=== PATIENT | female | born 1995 | race Caucasian/White ===

== ENCOUNTER 2016-11-13 09:28 | Emergency (ER) | payer OTHER, SELFPAY ==
[~2016-11-13 09:28] MED LIST: IBUP-1114 PO; PERCOCET PO; PRENTAB13 PO
[2016-11-13] MEDS ORDERED: KETOROLAC 30 MG/ML VIAL (J1885) As Ordered ONE (10:05)
[2016-11-13] MEDS ORDERED: METOCLOPRAMIDE INJ 10MG/2ML VIAL (J2765) As Ordered ONE (10:05)
--- NOTE | 2016-11-13 11:23 | EDDOCDS ---
Physician Documentation [facility] Name: Rut Miranda Age: 21 yrs Sex: Female : 1995 Arrival Date: 11/13/2016 Time: 09:28 Bed I4 / M4 Private MD: Judith Palumbo A Disposition: 11/13/16 11:17 Discharged to Home/Self Care. Impression: Migraine without aura. - Condition is Stable. - Discharge Instructions: Migraine Headache. - Prescriptions for ZOFRAN ODT 4 mg Oral - dissolve 1 tablet by ORAL route every 8 hours As needed do not chew, do not swallow whole; 10 tablet. ketorolac 10 mg Oral Tablet - take 1 tablet by ORAL route every 6 hours As needed MDD- 40mg. Up to 5 days total use.; 20 tablet. - Medication Reconciliation, Local Pharmacy Hours form. - Follow up: Marlee Dc; When: Call to arrange an appointment; Reason: Recheck today's complaints, To establish care. Follow up: Judith Palumbo; When: As needed; Reason: Recheck today's complaints, Continuance of care. Follow up: Emergency Department; When: As needed; Reason: Worsening of conditions. - Problem is an acute exacerbation. - Symptoms have improved. Historical: - Allergies: no known allergies; - Home Meds: 1. Goody's Migraine Relief oral as needed - PMHx: Migraine Headaches; - PSHx: Cesearean Section; - Social history: Smoking status: Patient uses tobacco products, current every day smoker. No barriers to communication noted, The patient speaks fluent Portuguese, Speaks appropriately for age. - Family history: Not pertinent. - : The pt / caregiver states he / she is not on anticoagulants. Home medication list is obtained from the patient. - Exposure Risk Screening:: None identified. 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 4 in. (162.56 cm) (R); Pain 9/10; 10:34 Pain 4/10; mcp 11:18 BP 116 / 68; Pulse 79; Resp 18; Temp 96.3(T); Pulse Ox 100% on R/A; Pain 0/10; mcp 09:30 Body Mass Index 27.46 (72.57 kg, 162.56 cm) ct3 MDM: 09:58 IV Saline Lock ordered. ar2 09:58 NS 0.9% 1000 ml IV at bolus once ordered. ar2 09:58 ketorolac 30 mg IVP once ordered. ar2 09:58 Metoclopramide 10 mg IV at 40 mg/hr once over 15 mins ordered. ar2 10:15 Financial registration complete. lg Administered Medications: 10:11 Drug: ketorolac 30 mg [ketorolac 30 mg/mL (1 mL) injection solution (1 mL)] Route: IVP; mcp Site: right antecubital; 10:34 Follow up: Pain 4/10 Adult; Response: Pain is decreased mcp 10:11 Drug: Metoclopramide 10 mg [metoclopramide 5 mg/mL injection solution] Route: IV; Rate: mcp 40 mg/hr; Infused Over: 15 mins; Site: right antecubital; 10:34 Follow up: IV Status: Completed infusion; IV Intake: 9ml mcp 10:12 Drug: NS 0.9% 1000 ml [sodium chloride 0.9 % intravenous solution] Route: IV; Rate: mcp bolus; Site: right antecubital; Signatures: Fernanda Wheatley RN RN [facility] Mlelissa Patel RN RN mcp Ganter, LoriLee, Reg Reg lg Robertshaw, Aaron, PA-C PA-C ar2 MTDMichelle
--- NOTE | 2016-11-13 11:23 | EDDOCDS ---
Nurse's Notes [facility] Name: Rut Miranda Age: 21 yrs Sex: Female : 1995 Arrival Date: 11/13/2016 Time: 09:28 Bed I4 / M4 Private MD: Judith Palumbo A Diagnosis: Migraine without aura Presentation: 11/13 09:32 Presenting complaint: Patient states: i have a horrible migraine. hx of migraines. pain srm behind right eye and feels like its swollen. took 3 goodie powders this am since 0600. no vision changes. This patient has no additional risk factors. Adult Sepsis Screening: The patient does not have new or worsening altered mentation. Patient's respiratory rate is less than 22. Systolic blood pressure is greater than 100. Patient has a qSOFA score of 0- Negative Sepsis Screen. Suicide/Homicide risk assessment- the patient denies having any suicidal and/or homicidal ideations and does not present with any other emotional, behavioral or mental health complaints. Status: Patient is not a rn support services or dependent. Transition of care: patient was not received from another setting of care. 09:32 Acuity: ALEXI Level 4 srm 09:32 Method Of Arrival: Walkin/Carried/Asstd srm Triage Assessment: 09:33 Headache History: This headache is like all previous headaches. General: Appears in no srm apparent distress, Behavior is appropriate for age, cooperative. Pain: Pain currently is 9 out of 10 on a pain scale. Pain began 0600 Also complains of photophobia. HIV screening NA for this visit Offered previously. Neurological: Level of Consciousness is awake, alert, Oriented to person, place, time, Adjunct Writing Instructor are equal bilaterally Moves all extremities. Full function Gait is steady, Speech is normal, Facial symmetry appears normal. 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 Goody's Migraine Relief oral as needed - PMHx: Migraine Headaches; - PSHx: Cesearean Section; - Social history: Smoking status: Patient uses tobacco products, current every day smoker. No barriers to communication noted, The patient speaks fluent Korean, Speaks appropriately for age. - Family history: Not pertinent. - : The pt / caregiver states he / she is not on anticoagulants. Home medication list is obtained from the patient. - Exposure Risk Screening:: None identified. Screenin:12 Screening information is obtained from the patient. Fall risk: No risks identified. mcp Assistance ADL's: requires no assistance with activities of daily living. Abuse/DV Screen: The patient / caregiver reports he/she is: not in a situation that causes fear, pain or injury. Nutritional screening: No deficits noted. Advance Directives: Currently, there is no health care proxy. There is no active DNR order. There is no Power of Radiology Specialist. home support is adequate. Assessment: 10:12 General: Appears uncomfortable, Behavior is cooperative. Pain: Location: head Pain mcp currently is 8 out of 10 on a pain scale. Neurological: Level of Consciousness is awake, alert, Oriented to person, place, time, Moves all extremities. Speech is normal, Reports headache. Respiratory: Airway is patent Respiratory effort is even, unlabored. Derm: Skin is pink, warm & dry. 10:35 General: Stated some relief from headache--4/10 now. IV patent and infusing well--site mcp without any signs of infiltration. Resting on stretcher. 11:18 General: Appears in no apparent distress, comfortable, Behavior is cooperative. Pain: mcp Denies pain. Neurological: No deficits noted. Respiratory: Airway is patent Respiratory effort is even, unlabored. Derm: Skin is pink, warm & dry. Vital Signs: 09:30 BP 101 / 57; Pulse 85; Resp 18; Temp 98.3(O); Pulse Ox 100% on R/A; Weight 72.57 kg ct3 (R); Height 5 ft. 4 in. (162.56 cm) (R); Pain 9/10; 10:34 Pain 4/10; mcp 11:18 BP 116 / 68; Pulse 79; Resp 18; Temp 96.3(T); Pulse Ox 100% on R/A; Pain 0/10; mcp 09:30 Body Mass Index 27.46 (72.57 kg, 162.56 cm) ct3 Vitals: 09:30 Log In Time: November 13, 2016 at 09:27. ct3 ED Course: 09:30 Patient visited by Annie Lincoln PCA. ct3 09:30 Judith Palumbo is Private Physician. ct3 09:30 Patient moved to Waiting ct3 09:31 Patient moved to Pre RCE ct3 09:33 Triage Initiated srm 09:34 Patient moved to Triage 1 srm 09:49 [facility] ar2 09:49 Hossein Cheng MD is Attending Physician. ar2 09:49 Patient visited by Faizan Bowser PA-C. ar2 09:57 Patient moved to I4 / M4 srm 10:13 Patient visited by Mellissa Patel RN. mcp 10:13 The patient / caregiver is instructed regarding the plan of care and ED course. Patient mcp has correct armband on for positive identification. Placed in gown. Bed in low position. Call light in reach. 10:13 Inserted saline lock: 20 gauge in right antecubital area The patient tolerated the mcp procedure well. 11:05 Patient has correct armband on for positive identification. Bed in low position. Call jam1 light in reach. Side rails up X 1. Door closed. 11:16 Marlee Dc is Referral Physician. ar2 11:17 Judith Palumbo is Referral Physician. ar2 11:18 No procedures done that require assistance. mcp 11:21 Discontinued lock intact, bleeding controlled, pressure dressing applied, No mcp redness/swelling at site. Administered Medications: 10:11 Drug: ketorolac 30 mg [ketorolac 30 mg/mL (1 mL) injection solution (1 mL)] Route: IVP; mcp Site: right antecubital; 10:34 Follow up: Pain 4/10 Adult; Response: Pain is decreased mcp 10:11 Drug: Metoclopramide 10 mg [metoclopramide 5 mg/mL injection solution] Route: IV; Rate: mcp 40 mg/hr; Infused Over: 15 mins; Site: right antecubital; 10:34 Follow up: IV Status: Completed infusion; IV Intake: 9ml mcp 10:12 Drug: NS 0.9% 1000 ml [sodium chloride 0.9 % intravenous solution] Route: IV; Rate: mcp bolus; Site: right antecubital; Intake: 10:34 IV: 9.00ml; Total: 9.00ml. mcp Order Results: There are currently no results for this order. Outcome: 11:17 Discharge ordered by Provider. ar2 11:21 Discharge Assessment: patient administered narcotics - no. The following High Risk mcp Discharge criteria are identified: None. Discharged to home ambulatory. Condition: stable. Discharge instructions given to patient, Instructed on discharge instructions, follow up and referral plans. medication usage, Demonstrated understanding of instructions, medications, Pt was receptive of discharge instructions/ teaching. Prescriptions given X 2. No special radiology studies were completed. Property sent home with patient. 11:22 Patient left the ED. [facility] Signatures: Fernanda Wheatley RN RN srm Peters, Mary, RN RN mcp Murphy, Jane, DRUM PLATER DRUM PLATER jam1 Faizan Bowser PA-C PA-C ar2 Annie Lincoln, DRUM PLATER DRUM PLATER ct3 MTDD
--- NOTE | 2016-11-15 12:23 | EDDOCDS ---
Physician Documentation [facility] Name: Rut Miranda Age: 21 yrs Sex: Female : 1995 Arrival Date: 11/13/2016 Time: 09:28 Bed I4 / M4 Private MD: Judith Palumbo A Disposition: 11/13/16 11:17 Discharged to Home/Self Care. Impression: Migraine without aura. - Condition is Stable. - Discharge Instructions: Migraine Headache. - Prescriptions for ZOFRAN ODT 4 mg Oral - dissolve 1 tablet by ORAL route every 8 hours As needed do not chew, do not swallow whole; 10 tablet. ketorolac 10 mg Oral Tablet - take 1 tablet by ORAL route every 6 hours As needed MDD- 40mg. Up to 5 days total use.; 20 tablet. - Medication Reconciliation, Local Pharmacy Hours form. - Follow up: Marlee Dc; When: Call to arrange an appointment; Reason: Recheck today's complaints, To establish care. Follow up: Judith Palumbo; When: As needed; Reason: Recheck today's complaints, Continuance of care. Follow up: Emergency Department; When: As needed; Reason: Worsening of conditions. - Problem is an acute exacerbation. - Symptoms have improved. Historical: - Allergies: no known allergies; - Home Meds: 1. Goody's Migraine Relief oral as needed - PMHx: Migraine Headaches; - PSHx: Cesearean Section; - Social history: Smoking status: Patient uses tobacco products, current every day smoker. No barriers to communication noted, The patient speaks fluent German, Speaks appropriately for age. - Family history: Not pertinent. - : The pt / caregiver states he / she is not on anticoagulants. Home medication list is obtained from the patient. - Exposure Risk Screening:: None identified. ECD: 11/13 09:33 LMP 10/19/2016 srm Vital Signs: 09:30 BP 101 / 57; Pulse 85; Resp 18; Temp 98.3(O); Pulse Ox 100% on R/A; Weight 72.57 kg / ct3 159.99 lbs (R); Height 5 ft. 4 in. (162.56 cm) (R); Pain 9/10; 10:34 Pain 4/10; mcp 11:18 BP 116 / 68; Pulse 79; Resp 18; Temp 96.3(T); Pulse Ox 100% on R/A; Pain 0/10; mcp 09:30 Body Mass Index 27.46 (72.57 kg, 162.56 cm) ct3 MDM: 09:58 IV Saline Lock ordered. ar2 09:58 NS 0.9% 1000 ml IV at bolus once ordered. ar2 09:58 ketorolac 30 mg IVP once ordered. ar2 09:58 Metoclopramide 10 mg IV at 40 mg/hr once over 15 mins ordered. ar2 10:15 Financial registration complete. lg 12:28 [facility] Payment Agreement was scanned into [employer] and attached to record. lg 15:32 T-Sheet-- Draft Copy was scanned into [employer] and attached to record. gb Administered Medications: 10:11 Drug: ketorolac 30 mg [ketorolac 30 mg/mL (1 mL) injection solution (1 mL)] Route: IVP; mcp Site: right antecubital; 10:34 Follow up: Pain 4/10 Adult; Response: Pain is decreased mcp 10:11 Drug: Metoclopramide 10 mg [metoclopramide 5 mg/mL injection solution] Route: IV; Rate: mcp 40 mg/hr; Infused Over: 15 mins; Site: right antecubital; 10:34 Follow up: IV Status: Completed infusion; IV Intake: 9ml mcp 10:12 Drug: NS 0.9% 1000 ml [sodium chloride 0.9 % intravenous solution] Route: IV; Rate: mcp bolus; Site: right antecubital; Signatures: Fernanda Wheatley RN RN [facility] Mellissa Patel RN RN [facility] Gabriela Poole, Reg Reg gb [place] Truong, Reg Reg lg Faizan Bowser PA-C PA-C ar2 The chart was reviewed and I authenticate all verbal orders and agree with the evaluation and treatment provided.Attachments: 12:28 [facility] Payment Agreement lg 15:32 T-Sheet-- Draft Copy gb Chart Complete MTDD
--- NOTE | 2016-11-15 12:23 | EDDOCDS ---
Physician Documentation [facility] Name: Rut Miranda Age: 21 yrs Sex: Female : 1995 Arrival Date: 11/13/2016 Time: 09:28 Bed I4 / M4 Private MD: Judith Palumbo A Disposition: 11/13/16 11:17 Discharged to Home/Self Care. Impression: Migraine without aura. - Condition is Stable. - Discharge Instructions: Migraine Headache. - Prescriptions for ZOFRAN ODT 4 mg Oral - dissolve 1 tablet by ORAL route every 8 hours As needed do not chew, do not swallow whole; 10 tablet. ketorolac 10 mg Oral Tablet - take 1 tablet by ORAL route every 6 hours As needed MDD- 40mg. Up to 5 days total use.; 20 tablet. - Medication Reconciliation, Local Pharmacy Hours form. - Follow up: Marlee Dc; When: Call to arrange an appointment; Reason: Recheck today's complaints, To establish care. Follow up: Judith Palumbo; When: As needed; Reason: Recheck today's complaints, Continuance of care. Follow up: Emergency Department; When: As needed; Reason: Worsening of conditions. - Problem is an acute exacerbation. - Symptoms have improved. Historical: - Allergies: no known allergies; - Home Meds: 1. Goody's Migraine Relief oral as needed - PMHx: Migraine Headaches; - PSHx: Cesearean Section; - Social history: Smoking status: Patient uses tobacco products, current every day smoker. No barriers to communication noted, The patient speaks fluent Spanish, Speaks appropriately for age. - Family history: Not pertinent. - : The pt / caregiver states he / she is not on anticoagulants. Home medication list is obtained from the patient. - Exposure Risk Screening:: None identified. 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 4 in. (162.56 cm) (R); Pain 9/10; 10:34 Pain 4/10; mcp 11:18 BP 116 / 68; Pulse 79; Resp 18; Temp 96.3(T); Pulse Ox 100% on R/A; Pain 0/10; mcp 09:30 Body Mass Index 27.46 (72.57 kg, 162.56 cm) ct3 MDM: 09:58 IV Saline Lock ordered. ar2 09:58 NS 0.9% 1000 ml IV at bolus once ordered. ar2 09:58 ketorolac 30 mg IVP once ordered. ar2 09:58 Metoclopramide 10 mg IV at 40 mg/hr once over 15 mins ordered. ar2 10:15 Financial registration complete. lg 12:28 [facility] Payment Agreement was scanned into [employer] and attached to record. lg 15:32 T-Sheet-- Draft Copy was scanned into [employer] and attached to record. gb Administered Medications: 10:11 Drug: ketorolac 30 mg [ketorolac 30 mg/mL (1 mL) injection solution (1 mL)] Route: IVP; mcp Site: right antecubital; 10:34 Follow up: Pain 4/10 Adult; Response: Pain is decreased mcp 10:11 Drug: Metoclopramide 10 mg [metoclopramide 5 mg/mL injection solution] Route: IV; Rate: mcp 40 mg/hr; Infused Over: 15 mins; Site: right antecubital; 10:34 Follow up: IV Status: Completed infusion; IV Intake: 9ml mcp 10:12 Drug: NS 0.9% 1000 ml [sodium chloride 0.9 % intravenous solution] Route: IV; Rate: mcp bolus; Site: right antecubital; Signatures: Fernanda Wheatley RN RN [facility] Mellissa Patel RN RN [facility] Gabriela Poole, Reg Reg gb [place] Truong, Reg Reg lg Faizan Bowser PA-C PA-C ar2 The chart was reviewed and I authenticate all verbal orders and agree with the evaluation and treatment provided.Attachments: 12:28 [facility] Payment Agreement lg 15:32 T-Sheet-- Draft Copy gb Chart Complete MTDD
--- NOTE | 2016-11-15 12:23 | EDDOCDS ---
Nurse's Notes [facility] Name: Rut Miranda Age: 21 yrs Sex: Female : 1995 Arrival Date: 11/13/2016 Time: 09:28 Bed I4 / M4 Private MD: Judith Palumbo A Diagnosis: Migraine without aura Presentation: 11/13 09:32 Presenting complaint: Patient states: i have a horrible migraine. hx of migraines. pain srm behind right eye and feels like its swollen. took 3 goodie powders this am since 0600. no vision changes. This patient has no additional risk factors. Adult Sepsis Screening: The patient does not have new or worsening altered mentation. Patient's respiratory rate is less than 22. Systolic blood pressure is greater than 100. Patient has a qSOFA score of 0- Negative Sepsis Screen. Suicide/Homicide risk assessment- the patient denies having any suicidal and/or homicidal ideations and does not present with any other emotional, behavioral or mental health complaints. Status: Patient is not a home service director or dependent. Transition of care: patient was not received from another setting of care. 09:32 Acuity: ALEXI Level 4 srm 09:32 Method Of Arrival: Walkin/Carried/Asstd srm Triage Assessment: 09:33 Headache History: This headache is like all previous headaches. General: Appears in no srm apparent distress, Behavior is appropriate for age, cooperative. Pain: Pain currently is 9 out of 10 on a pain scale. Pain began 0600 Also complains of photophobia. HIV screening NA for this visit Offered previously. Neurological: Level of Consciousness is awake, alert, Oriented to person, place, time, Pediatric Nephrologist are equal bilaterally Moves all extremities. Full function Gait is steady, Speech is normal, Facial symmetry appears normal. 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 Goody's Migraine Relief oral as needed - PMHx: Migraine Headaches; - PSHx: Cesearean Section; - Social history: Smoking status: Patient uses tobacco products, current every day smoker. No barriers to communication noted, The patient speaks fluent Polish, Speaks appropriately for age. - Family history: Not pertinent. - : The pt / caregiver states he / she is not on anticoagulants. Home medication list is obtained from the patient. - Exposure Risk Screening:: None identified. Screenin:12 Screening information is obtained from the patient. Fall risk: No risks identified. mcp Assistance ADL's: requires no assistance with activities of daily living. Abuse/DV Screen: The patient / caregiver reports he/she is: not in a situation that causes fear, pain or injury. Nutritional screening: No deficits noted. Advance Directives: Currently, there is no health care proxy. There is no active DNR order. There is no Power of Resident Services Manager. home support is adequate. Assessment: 10:12 General: Appears uncomfortable, Behavior is cooperative. Pain: Location: head Pain mcp currently is 8 out of 10 on a pain scale. Neurological: Level of Consciousness is awake, alert, Oriented to person, place, time, Moves all extremities. Speech is normal, Reports headache. Respiratory: Airway is patent Respiratory effort is even, unlabored. Derm: Skin is pink, warm & dry. 10:35 General: Stated some relief from headache--4/10 now. IV patent and infusing well--site mcp without any signs of infiltration. Resting on stretcher. 11:18 General: Appears in no apparent distress, comfortable, Behavior is cooperative. Pain: mcp Denies pain. Neurological: No deficits noted. Respiratory: Airway is patent Respiratory effort is even, unlabored. Derm: Skin is pink, warm & dry. Vital Signs: 09:30 BP 101 / 57; Pulse 85; Resp 18; Temp 98.3(O); Pulse Ox 100% on R/A; Weight 72.57 kg ct3 (R); Height 5 ft. 4 in. (162.56 cm) (R); Pain 9/10; 10:34 Pain 4/10; mcp 11:18 BP 116 / 68; Pulse 79; Resp 18; Temp 96.3(T); Pulse Ox 100% on R/A; Pain 0/10; mcp 09:30 Body Mass Index 27.46 (72.57 kg, 162.56 cm) ct3 Vitals: 09:30 Log In Time: November 13, 2016 at 09:27. ct3 ED Course: 09:30 Patient visited by Annie Lincoln PCA. ct3 09:30 Judith Palumbo is Private Physician. ct3 09:30 Patient moved to Waiting ct3 09:31 Patient moved to Pre RCE ct3 09:33 Triage Initiated srm 09:34 Patient moved to Triage 1 srm 09:49 [facility]an Bowser [facility] ar2 09:49 Hossein Cheng MD is Attending Physician. ar2 09:49 Patient visited by Faizan Bowser PA-C. ar2 09:57 Patient moved to I4 / M4 srm 10:13 Patient visited by Mellissa Patel RN. mcp 10:13 The patient / caregiver is instructed regarding the plan of care and ED course. Patient mcp has correct armband on for positive identification. Placed in gown. Bed in low position. Call light in reach. 10:13 Inserted saline lock: 20 gauge in right antecubital area The patient tolerated the mcp procedure well. 11:05 Patient has correct armband on for positive identification. Bed in low position. Call jam1 light in reach. Side rails up X 1. Door closed. 11:16 Marlee Dc is Referral Physician. ar2 11:17 Judith Palumbo is Referral Physician. ar2 11:18 No procedures done that require assistance. mcp 11:21 Discontinued lock intact, bleeding controlled, pressure dressing applied, No mcp redness/swelling at site. 12:28 [facility] Payment Agreement was scanned into [employer] and attached to record. 15:32 T-Sheet-- Draft Copy was scanned into [employer] and attached to record. gb Administered Medications: 10:11 Drug: ketorolac 30 mg [ketorolac 30 mg/mL (1 mL) injection solution (1 mL)] Route: IVP; mcp Site: right antecubital; 10:34 Follow up: Pain 4/10 Adult; Response: Pain is decreased mcp 10:11 Drug: Metoclopramide 10 mg [metoclopramide 5 mg/mL injection solution] Route: IV; Rate: mcp 40 mg/hr; Infused Over: 15 mins; Site: right antecubital; 10:34 Follow up: IV Status: Completed infusion; IV Intake: 9ml mcp 10:12 Drug: NS 0.9% 1000 ml [sodium chloride 0.9 % intravenous solution] Route: IV; Rate: mcp bolus; Site: right antecubital; Intake: 10:34 IV: 9.00ml; Total: 9.00ml. mcp Order Results: There are currently no results for this order. Outcome: 11:17 Discharge ordered by Provider. ar2 11:21 Discharge Assessment: patient administered narcotics - no. The following High Risk [facility] Discharge criteria are identified: None. Discharged to home ambulatory. Condition: stable. Discharge instructions given to patient, Instructed on discharge instructions, follow up and referral plans. medication usage, Demonstrated understanding of instructions, medications, Pt was receptive of discharge instructions/ teaching. Prescriptions given X 2. No special radiology studies were completed. Property sent home with patient. 11:22 Patient left the ED. [facility] Signatures: Fernanda Wheatley, RN RN Mellissa Long RN RN mcp Murphy, Jane, WEASAND TRIMMER WEASAND TRIMMER jam1 Gabriela Poole, Reg Reg gb [place] Truong, Reg Reg lg Faizan Bowser PA-C PA-C ar2 Annie Lincoln, WEASAND TRIMMER WEASAND TRIMMER ct3 Chart Complete MTDD
== END 2016-11-13 11:22 | disposition home or self-care (01) ==
LOC: M ED 09:28
DX: G43.909 Migraine, unspecified, not intractable, without status migrainosus (principal); F17.200 Nicotine dependence, unspecified, uncomplicated
CPT/HCPCS: 96365; 96375; 99283; J1885; J2765

== ENCOUNTER 2017-05-14 15:33 | Emergency (ER) | payer MEDICAID, SELFPAY ==
[~2017-05-14] VITALS: Ht 162.6 cm; Wt 87.4 kg
[~2017-05-14 15:33] MED LIST changes: +FLAG500T PO; -PRENTAB13 PO; +PRENTAB20 PO
[2017-05-14] MEDS ORDERED: ZOFR4TAB3 PO (16:49)
[2017-05-14] MEDS ORDERED: FIOR1CAP PO (16:49)
[2017-05-14 17:00] VITALS: BP 121/66
== END 2017-05-14 17:04 | disposition home or self-care (01) ==
LOC: M ED 15:33
DX: O99.352 Diseases of the nervous system complicating pregnancy, second trimester (principal); G43.909 Migraine, unspecified, not intractable, without status migrainosus; Z3A.18 18 weeks gestation of pregnancy; O99.332 Smoking (tobacco) complicating pregnancy, second trimester; F17.210 Nicotine dependence, cigarettes, uncomplicated

== ENCOUNTER → 2017-08-08 | Outpatient (CLI) | payer OTHER ==
[~2017-08-08] MED LIST changes: +FIOR1CAP PO; +ZOFR4TAB3 PO
--- NOTE | 2017-08-08 11:37 | REP ---
Obstetric ultrasound for anatomy: There is a single intrauterine gestation in a breech presentation. There is movement and cardiac activity. heart rate is 140 beats per minute. There is an anterior placenta with no previa or abruptio with grade 1 maturity. The amniotic fluid volume subjectively is normal. The cervix measures 5.2 cm length. By the ultrasound today gestational age is 27 weeks 3 days with an BERNARD of 11/04/2017. By the first ultrasound gestational age 20 weeks 4 days with an BERNARD of 10/27/2017. By LMP 28 weeks 2 days with an BERNARD of 10/29/2017. weight is 1005 grams (2 pounds, 3 ounces). This is the 12th percentile for 28 weeks 2 days. The following anatomic structures are identified and are unremarkable: Intracranial lateral ventricles, balloon choroid plexus, cerebellum, cisterna magna, upper lip, facial profile, face, lungs, four-chamber heart, cardiac right and left ventricular outflow tracts, diaphragm, stomach, cord insertion, three-vessel cord, kidneys, bladder, spine and upper lower extremities. No anomalies are identified. Signed by Santos Thibodeaux MD 08/08/2017 11:30 A
== END ==
LOC: M RAD 09:25
PROVIDERS: ATTEND Advanced Practice Midwife
DX: Z36.89 Encounter for other specified antenatal screening (principal); Z3A.27 27 weeks gestation of pregnancy

== ENCOUNTER → 2017-08-15 | Outpatient (CLI) | payer OTHER ==
[2017-08-15 13:51] LABS: BASO % 0.2 % (0.0-1.0); EOS # 0.1 10^3/uL (0.0-0.50); EOS % 0.5 % (0.0-3.0); IMMATURE GRANULOCYTE % 0.8 % (0-0); LYMPH # 2.6 10^3/uL (1.5-6.5); LYMPH % 21.1 % (24.0-44.0); MEAN CORPUSCULAR HEMOGLOBIN 33.5 pg (27.0-33.0); MEAN CORPUSCULAR HGB CONC 34.3 g/dl (32.0-36.5); MEAN CORPUSCULAR VOLUME 97.7 fl (80.0-96.0); MONO # 0.6 10^3/uL (0.0-0.8); MONO % 4.9 % (0.0-5.0); NEUTROPHILS # 8.9 10^3/uL (1.8-7.7); NEUTROPHILS % 72.5 % (36.0-66.0); PLATELET COUNT, AUTOMATED 198 10^3/uL (150-450); RED CELL DISTRIBUTION WIDTH 12.8 % (11.5-14.5); WHITE BLOOD COUNT 12.2 10^3/uL (4.0-10.0)
[2017-08-16 11:11] LABS: HBsAg Prenatal NEGATIVE (NEGATIVE)
== END ==
LOC: M LAB 11:36
PROVIDERS: ATTEND Advanced Practice Midwife
DX: Z34.82 Encounter for supervision of other normal pregnancy, second trimester (principal)

== ENCOUNTER → 2017-10-01 | Outpatient (REF) | payer OTHER | LOC: M LAB REF 17:06 | DX: Z34.83 Encounter for supervision of other normal pregnancy, third trimester (principal); Z3A.00 Weeks of gestation of pregnancy not specified ==

== ENCOUNTER → 2017-10-14 | Outpatient (CLI) | payer OTHER | LOC: M RAD 13:53 | DX: O26.843 Uterine size-date discrepancy, third trimester (principal); Z3A.37 37 weeks gestation of pregnancy | CPT/HCPCS: 76816 ==

== ENCOUNTER 2017-10-23 07:27 | Inpatient (IN) | payer OTHER ==
[2017-10-23 08:56] LABS: HEMATOCRIT 30.6 % (36.0-47.0); HEMOGLOBIN 10.9 g/dl (12.0-16.0); MEAN CORPUSCULAR HEMOGLOBIN 33.4 pg (27.0-33.0); MEAN CORPUSCULAR HGB CONC 35.6 g/dl (32.0-36.5); MEAN CORPUSCULAR VOLUME 93.9 fl (80.0-96.0); PLATELET COUNT, AUTOMATED 158 10^3/uL (150-450); RED BLOOD COUNT 3.26 10^6/uL (4.00-5.40); WHITE BLOOD COUNT 11.4 10^3/uL (4.0-10.0)
[2017-10-23] MEDS: PRENATAL VITAMINS CHEWABLE TABLET PO (09:00)
[2017-10-23] MEDS ORDERED: MORPHINE PRES-FREE INJ 10 MG/10 ML VIAL (J2274) As Ordered (09:06)
[2017-10-23] MEDS: LR 1,000 ML IV ×5 (09:14→22:50)
[2017-10-23] MEDS ORDERED: LR 1,000 ML IV (09:15)
[2017-10-23] MEDS: BICITRA 30ML SOLN UDC PO (10:11)
[2017-10-23] MEDS ORDERED: OXYTOCIN INJ 10 UNITS/ML VIAL (J2590) As Ordered ×2 (10:14→10:15)
[2017-10-23] MEDS ORDERED: NALOXONE INJ 0.4 MG/1 ML VIAL (J2310) IV ×2 (10:21)
[2017-10-23] MEDS ORDERED: ONDANSETRON 4MG/2ML VIAL (J2405) IV ×3 (10:21→12:00)
[2017-10-23] MEDS ORDERED: NALBUPHINE HCL 10 MG/ML AMP (J2300) IV ×2 (10:21→12:00)
[2017-10-23] MEDS ORDERED: METOCLOPRAMIDE INJ 10MG/2ML VIAL (J2765) IV (10:21)
[2017-10-23] MEDS ORDERED: ePHEDrine INJ 50 MG/ML VIAL As Ordered (10:23)
[2017-10-23] MEDS ORDERED: PHENYLephrine HCL 500 MCG/5 ML (100MCG/ML) SYRINGE (J2370) As Ordered (10:28)
[2017-10-23] MEDS ORDERED: ONDANSETRON 4MG/2ML VIAL (J2405) As Ordered (10:37)
[2017-10-23] MEDS: OXYTOCIN DRIP 30 UNITS in APPROPRIATE DILUENT 1 EA IV (11:45)
[2017-10-23] MEDS ORDERED: MOM 30ML SUSPENSION UDC PO (11:45)
[2017-10-23] MEDS ORDERED: KETOROLAC 30 MG/ML VIAL (J1885) IV (12:00)
[2017-10-23] MEDS ORDERED: MEPERIDINE INJ 25 MG/ML VIAL (J2175) IV (12:00)
[2017-10-23] MEDS ORDERED: fentaNYL 100 MCG/2 ML INJECTION (J3010) IV (12:00)
[2017-10-23] MEDS: RHOGAM 300 MCG (1500 IU) INJ (J2790) IM (14:13)
[2017-10-23] MEDS: MEASLES,MUMPS,RUBELLA VACCINE INJ (MMR-II) (90707) SC (14:14)
[2017-10-23] MEDS: KETOROLAC 30 MG/ML VIAL (J1885) IV (18:42)
[2017-10-23] MEDS ORDERED: INFLUENZA QUADRIVALENT PF VACCINE 0.5ML SYRINGE (90686) IM (19:15)
[2017-10-23] MEDS: PERCOCET 5MG/325MG TAB PO (22:51)
[2017-10-24] MEDS: KETOROLAC 30 MG/ML VIAL (J1885) IV ×2 (01:14→06:41)
[2017-10-24 07:08] LABS: HEMOGLOBIN 9.2 g/dl (12.0-16.0); MEAN CORPUSCULAR HEMOGLOBIN 32.9 pg (27.0-33.0); MEAN CORPUSCULAR HGB CONC 34.1 g/dl (32.0-36.5); MEAN CORPUSCULAR VOLUME 96.4 fl (80.0-96.0); PLATELET COUNT, AUTOMATED 132 10^3/uL (150-450); RED CELL DISTRIBUTION WIDTH 12.9 % (11.5-14.5); WHITE BLOOD COUNT 10.3 10^3/uL (4.0-10.0)
[2017-10-24] MEDS ORDERED: ADACEL/BOOSTRIX VACCINE (DIPHTH/PERTUSS/ACELL/TETANUS)0.5ML SYR (90715) IM (09:00)
[2017-10-24] MEDS: PRENATAL VITAMINS CHEWABLE TABLET PO (09:36)
[2017-10-24] MEDS: PERCOCET 5MG/325MG TAB PO ×3 (09:52→19:56)
[2017-10-24] MEDS: IBUPROFEN 800 MG TAB PO ×2 (14:51→22:42)
[2017-10-24] MEDS: DOCUSATE SODIUM 100 MG CAP PO (19:55)
[2017-10-25] MEDS: DOCUSATE SODIUM 100 MG CAP PO (04:22)
[2017-10-25] MEDS: PERCOCET 5MG/325MG TAB PO ×2 (04:22→08:23)
[2017-10-25] MEDS: IBUPROFEN 800 MG TAB PO (07:37)
[2017-10-25] MEDS: PRENATAL VITAMINS CHEWABLE TABLET PO (07:37)
[2017-10-25] MEDS: ADACEL/BOOSTRIX VACCINE (DIPHTH/PERTUSS/ACELL/TETANUS)0.5ML SYR (90715) IM (08:23)
== END 2017-10-25 11:05 | disposition home or self-care (01) | DRG 540 ==
LOC: M LDI 07:27 → M OBS 14:08
PROVIDERS: Obstetrics & Gynecology
PROC: 10D00Z1 Extraction of Products of Conception, Low, Open Approach (ICD-10-PCS; principal; 2017-10-23 09:30)
DX: O34.211 Maternal care for low transverse scar from previous cesarean delivery (principal); F17.210 Nicotine dependence, cigarettes, uncomplicated; Z3A.39 39 weeks gestation of pregnancy; O99.334 Smoking (tobacco) complicating childbirth; Z37.0 Single live birth

== ENCOUNTER 2018-01-24 17:05 | Emergency (ER) | payer OTHER ==
[2018-01-24] MEDS: METHOCARBAMOL 750 MG TAB PO (19:02)
[2018-01-24] MEDS: PERCOCET 5MG/325MG TAB PO (19:03)
== END 2018-01-24 19:52 | disposition home or self-care (01) ==
LOC: M ED 17:05
DX: S23.3XXA Sprain of ligaments of thoracic spine, initial encounter (principal); S33.5XXA Sprain of ligaments of lumbar spine, initial encounter; W10.9XXA Fall (on) (from) unspecified stairs and steps, initial encounter; Y92.89 Other specified places as the place of occurrence of the external cause; J45.909 Unspecified asthma, uncomplicated; F33.9 Major depressive disorder, recurrent, unspecified; F41.9 Anxiety disorder, unspecified; F17.210 Nicotine dependence, cigarettes, uncomplicated
CPT/HCPCS: 72128

== ENCOUNTER → 2018-03-26 | Outpatient (CLI) | payer OTHER | LOC: M OUTALCOH 07:55 | DX: Z03.89 Encounter for observation for other suspected diseases and conditions ruled out (principal) ==

== ENCOUNTER 2018-04-08 13:40 | Outpatient (RCR) | payer OTHER | END 2018-04-29 | LOC: M OUTALCOH 13:40 | DX: Z03.89 Encounter for observation for other suspected diseases and conditions ruled out (principal); F17.200 Nicotine dependence, unspecified, uncomplicated ==

== ENCOUNTER 2018-05-20 15:25 | Emergency (ER) | payer OTHER ==
[2018-05-20] MEDS: NS 500 ML IV (17:24)
[2018-05-20] MEDS: diphenhydrAMINE INJ 50MG/ML VIAL (J1200) IV (17:28)
[2018-05-20] MEDS: KETOROLAC 30 MG/ML VIAL (J1885) IV (17:28)
[2018-05-20] MEDS: METOCLOPRAMIDE INJ 10MG/2ML VIAL (J2765) IV (17:28)
== END 2018-05-20 18:33 | disposition home or self-care (01) ==
LOC: M ED 15:25
DX: S93.402A Sprain of unspecified ligament of left ankle, initial encounter (principal); S80.02XA Contusion of left knee, initial encounter; S90.32XA Contusion of left foot, initial encounter; G43.909 Migraine, unspecified, not intractable, without status migrainosus; W10.8XXA Fall (on) (from) other stairs and steps, initial encounter; Y92.098 Other place in other non-institutional residence as the place of occurrence of the external cause; J45.909 Unspecified asthma, uncomplicated; F41.9 Anxiety disorder, unspecified; F32.9 Major depressive disorder, single episode, unspecified
CPT/HCPCS: J1200

== ENCOUNTER 2018-06-25 07:32 | Emergency (ER) | payer OTHER ==
[2018-06-25] MEDS: IBUPROFEN 600 MG TAB PO (08:43)
[2018-06-25 09:07] LABS: INFLUENZA A AMPLIFICATION NEGATIVE (NEGATIVE); INFLUENZA B AMPLIFICATION NEGATIVE (NEGATIVE)
== END 2018-06-25 10:09 | disposition home or self-care (01) ==
LOC: M ED 07:32
DX: J06.9 Acute upper respiratory infection, unspecified (principal)
CPT/HCPCS: 87502

== ENCOUNTER 2018-08-15 06:00 | Day surgery (SDC) | payer OTHER ==
[2018-08-15] MEDS ORDERED: LR 1,000 ML IV ×2 (06:30→09:15)
[2018-08-15 06:39] LABS: HEMATOCRIT 39.9 % (36.0-47.0); HEMOGLOBIN 13.7 g/dl (12.0-15.5); MEAN CORPUSCULAR HEMOGLOBIN 33.2 pg (27.0-33.0); MEAN CORPUSCULAR HGB CONC 34.3 g/dl (32.0-36.5); MEAN CORPUSCULAR VOLUME 96.6 fl (80.0-96.0); PLATELET COUNT, AUTOMATED 217 10^3/uL (150-450); RED BLOOD COUNT 4.13 10^6/uL (4.00-5.40); RED CELL DISTRIBUTION WIDTH 11.7 % (11.5-14.5); WHITE BLOOD COUNT 8.9 10^3/uL (4.0-10.0)
[2018-08-15 07:01] LABS: CONTROL LINE HCG INT CTR LINE PRESENT; HCG, SERUM QUALITATIVE NEGATIVE (NEGATIVE)
[2018-08-15] MEDS ORDERED: fentaNYL 100 MCG/2 ML INJECTION (J3010) As Ordered ×2 (07:23→09:00)
[2018-08-15] MEDS ORDERED: PROPOFOL 200 MG/20 ML VIAL As Ordered (07:23)
[2018-08-15] MEDS ORDERED: dexameTHASONE 4 MG/ML 1ML VIAL (J1100) As Ordered (07:23)
[2018-08-15] MEDS ORDERED: LIDOCAINE 2% INJ 100 MG/5 ML SDV (FOR ANES.) As Ordered (07:23)
[2018-08-15] MEDS ORDERED: ROCURONIUM BROMIDE 50 MG/5 ML VIAL As Ordered (07:23)
[2018-08-15] MEDS ORDERED: MIDAZOLAM INJ 2 MG/2 ML VIAL (J2250) As Ordered (07:24)
[2018-08-15] MEDS ORDERED: PHENYLephrine HCL 500 MCG/5 ML (100MCG/ML) SYRINGE (J2370) As Ordered (08:18)
[2018-08-15] MEDS: BUPIVACAINE HCL 0.25% 30 ML VIAL As Ordered (08:23)
[2018-08-15] MEDS ORDERED: NEOSTIGMINE 10 MG/10 ML VIAL (J2710) As Ordered ×2 (08:29→08:30)
[2018-08-15] MEDS ORDERED: KETOROLAC 60 MG/2 ML VIAL (J1885) As Ordered (08:29)
[2018-08-15] MEDS ORDERED: ONDANSETRON 4MG/2ML VIAL (J2405) As Ordered (08:29)
[2018-08-15] MEDS ORDERED: GLYCOPYRROLATE INJ 0.2 MG/ML 2 ML VIAL As Ordered (08:29)
[2018-08-15] MEDS ORDERED: SUGAMMADEX SODIUM 500 MG/5 ML VIAL (BRIDION) As Ordered (08:32)
[2018-08-15] MEDS ORDERED: MEPERIDINE INJ 25 MG/ML VIAL (J2175) As Ordered (09:00)
[2018-08-15] MEDS: fentaNYL 100 MCG/2 ML INJECTION (J3010) IV ×2 (09:02→09:09)
[2018-08-15] MEDS: MEPERIDINE INJ 25 MG/ML VIAL (J2175) IV ×2 (09:03→09:13)
[2018-08-15] MEDS ORDERED: ONDANSETRON 4MG/2ML VIAL (J2405) IV (09:15)
[2018-08-15] MEDS ORDERED: METOCLOPRAMIDE INJ 10MG/2ML VIAL (J2765) IV (09:15)
[2018-08-15] MEDS ORDERED: PERCOCET 5MG/325MG TAB PO (09:15)
[2018-08-15] MEDS: PERCOCET 5MG/325MG TAB PO ×2 (10:09→10:50)
[2018-08-15] MEDS ORDERED: KETOROLAC 30 MG/ML VIAL (J1885) IV (15:00)
== END 2018-08-15 11:14 | disposition home or self-care (01) ==
LOC: M SDC 06:00
DX: Z30.2 Encounter for sterilization (principal); G43.909 Migraine, unspecified, not intractable, without status migrainosus; J45.909 Unspecified asthma, uncomplicated; Z72.0 Tobacco use
CPT/HCPCS: 58671

== ENCOUNTER 2018-10-07 22:17 | Emergency (ER) | payer OTHER ==
[~2018-10-07] VITALS: Ht 162.6 cm; Wt 90.9 kg
[2018-10-07 22:17] VITALS: BP 121/64
[~2018-10-07 22:17] MED LIST changes: +ACET30TAB PO; +COLA100C5 PO; +IBUP1TAB7 PO; +KETO10TAB PO; +NAPR-885 PO; +PERC5TAB12 PO; +PRENTAB9 PO; +PSEU30TA21 PO; +REGL10TA6 PO; +ROBA500T PO; +TYLE325T5 PO; +ZOFR4TAB14 PO; -ZOFR4TAB3 PO
[2018-10-07] MEDS ORDERED: CLINDAMYCIN 150 MG CAP PO ONE (23:45)
[2018-10-07] MEDS ORDERED: CLEO300C2 PO (23:45)
== END 2018-10-07 23:51 | disposition home or self-care (01) ==
LOC: M ED 22:17
DX: L03.211 Cellulitis of face (principal); R51 Headache; J45.909 Unspecified asthma, uncomplicated; F41.9 Anxiety disorder, unspecified; F32.9 Major depressive disorder, single episode, unspecified; F17.210 Nicotine dependence, cigarettes, uncomplicated

== ENCOUNTER 2018-11-05 21:22 | Emergency (ER) | payer OTHER ==
[~2018-11-05] VITALS: Ht 162.6 cm; Wt 81.8 kg
[~2018-11-05 21:22] MED LIST changes: +CLEO300C2 PO
[2018-11-05] MEDS ORDERED: KETOROLAC TROMETHAMINE 10 MG TAB PO ONE (22:00)
[2018-11-05] MEDS ORDERED: KETO10TAB PO (22:37)
[2018-11-05 23:01] VITALS: BP 110/66
--- NOTE | 2018-11-06 02:42 | REP ---
Clinical: Trauma/fall with left hip pain. Technique: Frontal view of the pelvis with neutral and frog lateral views of the left hip. Findings: Osseous structures and joint spaces are intact and normal. Hip joints appear symmetric on frontal pelvic radiograph. No acute fracture dislocation. No evidence for healed injury. No significant degenerative or congenital abnormalities are appreciated. Surrounding soft tissues are unremarkable. Impression: Normal pelvis and left hip series. Electronically Signed by Mayito Ontiveros MD 11/06/2018 02:33 A
== END 2018-11-05 23:00 | disposition home or self-care (01) ==
LOC: M ED 21:22
DX: S73.102A Unspecified sprain of left hip, initial encounter (principal); W19.XXXA Unspecified fall, initial encounter; Y92.511 Restaurant or cafe as the place of occurrence of the external cause

== ENCOUNTER 2018-11-08 15:23 | Emergency (ER) | payer OTHER ==
[~2018-11-08] VITALS: Ht 162.6 cm; Wt 84.1 kg
[2018-11-08] MEDS ORDERED: PERC5TAB12 PO (17:33)
[2018-11-08 17:42] VITALS: BP 141/64
== END 2018-11-08 17:44 | disposition home or self-care (01) ==
LOC: M ED 15:23
DX: S73.102A Unspecified sprain of left hip, initial encounter (principal); W19.XXXA Unspecified fall, initial encounter; Y92.511 Restaurant or cafe as the place of occurrence of the external cause; R51 Headache; F17.210 Nicotine dependence, cigarettes, uncomplicated

== ENCOUNTER 2019-01-18 20:38 | Inpatient (IN) | payer OTHER ==
[~2019-01-18] VITALS: Ht 162.6 cm; Wt 83.4 kg
[~2019-01-18 20:38] MED LIST changes: +ACET-716 PO; -ACET30TAB PO
[2019-01-18 21:21] LABS: HEMATOCRIT 42.7 % (36.0-47.0); HEMOGLOBIN 14.4 g/dl (12.0-15.5); MEAN CORPUSCULAR HEMOGLOBIN 32.6 pg (27.0-33.0); MEAN CORPUSCULAR HGB CONC 33.7 g/dl (32.0-36.5); MEAN CORPUSCULAR VOLUME 96.6 fl (80.0-96.0); PLATELET COUNT, AUTOMATED 179 10^3/uL (150-450); RED BLOOD COUNT 4.42 10^6/uL (4.00-5.40); WHITE BLOOD COUNT 6.4 10^3/uL (4.0-10.0)
[2019-01-18] MEDS ORDERED: NICOTINE 21MG/24HR 1 EA TRANSDERMAL TD ONE (21:30)
[2019-01-18 21:50] LABS: HCG, SERUM QUALITATIVE NEGATIVE (NEGATIVE)
[2019-01-18 22:08] LABS: ALT/SGPT 15 U/L (12-78); BILIRUBIN,DIRECT 0.1 MG/DL (0.0-0.2); BILIRUBIN,TOTAL 0.5 MG/DL (0.2-1.0); BLOOD UREA NITROGEN 8 MG/DL (7-18); CALCIUM LEVEL 8.6 MG/DL (8.5-10.1); CARBON DIOXIDE LEVEL 28 MEQ/L (21-32); CHLORIDE LEVEL 108 MEQ/L (98-107); GLOMERULAR FILTRATION RATE > 60.0 (>60); GLUCOSE, FASTING 81 MG/DL (70-100); POTASSIUM SERUM 4.2 MEQ/L (3.5-5.1); SODIUM LEVEL 142 MEQ/L (136-145)
[2019-01-18 22:09] LABS: ACETAMINOPHEN LEVEL 13.9 UG/ML (10.0-30.0); ALBUMIN 3.9 GM/DL (3.2-5.2); SALICYLATE LEVEL 2.4 MG/DL (5.0-30.0); THYROID STIMULATING HORMONE 0.379 uIU/ML (0.358-3.740); TOTAL PROTEIN 6.9 GM/DL (6.4-8.2)
[2019-01-18 22:18] LABS: AMPHETAMINES LEVEL URINE NEGATIVE (NEGATIVE); BARBITURATES URINE NEGATIVE (NEGATIVE); BENZODIAZEPINES URINE NEGATIVE (NEGATIVE); CANNABINOIDS URINE NEGATIVE (NEGATIVE); COCAINE METABOLITE URINE POSITIVE (NEGATIVE); METHADONE URINE NEGATIVE (NEGATIVE); OPIATES URINE POSITIVE (NEGATIVE); PHENCYCLIDINE URINE NEGATIVE (NEGATIVE)
[2019-01-19] MEDS ORDERED: ACETAMINOPHEN TAB 650MG DOSE (2X325MG) PO PRN (13:00)
[2019-01-19] MEDS ORDERED: MAALOX 30 ML SUSP *UDC PO PRN (13:00)
[2019-01-19] MEDS ORDERED: MOM 30ML SUSPENSION UDC PO PRN (13:00)
[2019-01-19] MEDS ORDERED: LORazepam 1 MG TAB PO PRN (13:00)
[2019-01-19] MEDS: NICOTINE 21MG/24HR 1 EA TRANSDERMAL TD SCH (16:39)
[2019-01-19 18:06] VITALS: BP 118/66
[2019-01-19] MEDS: traZODone 50 MG TAB PO PRN (20:56)
--- NOTE | 2019-01-20 01:07 | ECGEPIP ---
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
[2019-01-20 06:08] VITALS: BP 103/52
[2019-01-20] MEDS: NICOTINE 21MG/24HR 1 EA TRANSDERMAL TD SCH (08:01)
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
[2019-01-20] MEDS: FLUoxetine 10 MG CAP PO SCH (11:36)
--- NOTE | 2019-01-20 15:44 | HPEPDOC ---
General Date of Admission Jan 19, 2019 at 12:47 Chief Complaint The patient is a 23-year-old female who presented with suicidal attempt History of Present Illness Patient is a 23-year-old female with a PMHx of Depression, Hx of suicidal ideation who presented to the emergency room after she tried to kill herself by overdose. Hospialist service was called for medical management. Currently patient denies any headache, nausea, vomiting, chest pain, shortness of breath, cough, abdominal pain, constipation, diarrhea or discomfort with urination or any fevers and chills last 2 weeks. Patient reports that her weight has been pretty consistent. However, her diet seems to fluctuate. Home Medications No Active Prescriptions or Reported Meds Allergies Coded Allergies: No Known Allergies (Verified Allergy, Unknown, 01/18/19) Past Medical History Medical History Migraine headaches Depression Surgical History 3 C-sections Tubal ligation completed August 2018 Family History - Mother with history of cocaine abuse and ovarian cyst - Father with unknown past medical history - She reports her family history is consistent with malignancy Social History - Patient reports that she is a smoker for about 8 years at 1.5 PPD. She reports social alcohol use. She does report drug use with opiates (Vicodin, OxyContin and Codeine) and cocaine (Snorting). 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 Review of Systems Other systems 10 point review systems complete, all negative otherwise stated in HPI Vital Signs - Vitals: BP 115/69, HR 84, RR 18, Sat 100%RA, Temp 98.4F - General: Lying in bed, No acute distress, Speaking in full sentences, AAOx3 - HEENT: NC, AT, PERRLA, EOMI, both ear passages appears to be filled with wax, however TM appears without any fluid - CVS: RRR, +S1S2 - Lungs: Fair air entry bilaterally, Clear to auscultation, No wheezing / rales / rhonchi - Abdomen: Soft, Non-distended, Non-tender - Extremities: + PPx4, No lower extremity edema, No calf tenderness - Neuro: No focal motor or sensory deficit - Skin: No visible rashes Plan / VTE VTE Prophylaxis Ordered?: Yes Plan Plan Suicidal ideation / Depression - Currently being managed by psychiatry Bilateral ear passages filled with cerumen - Tympanic membrane does not appear to show any signs of infection - c/w Debrox eardrops DVT prophylaxis - c/w Early ambulation There do not appear to be any significant medical problems, please re-consult as needed Female nursing staff was present during the history and physical exam ILEANA LAMB MD Jan 20, 2019 15:44
[2019-01-20] MEDS: CARBAMIDE PEROXIDE 6.5% OTIC SOLN 15ML AU SCH ×2 (15:56→20:24)
[2019-01-20 18:00] VITALS: BP 128/75
[2019-01-20] MEDS: traZODone 50 MG TAB PO PRN (20:24)
[2019-01-20] MEDS: hydrOXYzine 50 MG TAB PO PRN (20:24)
[2019-01-21 06:33] VITALS: BP 102/54
[2019-01-21] MEDS: FLUoxetine 10 MG CAP PO SCH (09:09)
[2019-01-21] MEDS: NICOTINE 21MG/24HR 1 EA TRANSDERMAL TD SCH (09:09)
[2019-01-21] MEDS: CARBAMIDE PEROXIDE 6.5% OTIC SOLN 15ML AU SCH ×2 (09:10→20:47)
[2019-01-21] MEDS: hydrOXYzine 50 MG TAB PO PRN (14:17)
[2019-01-21 18:00] VITALS: BP 123/55
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
[2019-01-21] MEDS: traZODone 50 MG TAB PO PRN (20:48)
[2019-01-22 07:07] VITALS: BP 92/51
[2019-01-22] MEDS: CARBAMIDE PEROXIDE 6.5% OTIC SOLN 15ML AU SCH ×2 (08:28→20:30)
[2019-01-22] MEDS: NICOTINE 21MG/24HR 1 EA TRANSDERMAL TD SCH (08:28)
[2019-01-22] MEDS: FLUoxetine 10 MG CAP PO SCH (08:29)
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
[2019-01-22] MEDS: hydrOXYzine 50 MG TAB PO PRN (17:56)
[2019-01-22 18:00] VITALS: BP 111/65
[2019-01-22] MEDS: traZODone 50 MG TAB PO PRN (20:30)
[2019-01-23 06:17] VITALS: BP 84/60
[2019-01-23 06:50] VITALS: BP 112/56
[2019-01-23] MEDS ORDERED: FLUoxetine 20 MG CAP PO SCH (09:00)
[2019-01-23] MEDS: CARBAMIDE PEROXIDE 6.5% OTIC SOLN 15ML AU SCH (09:00)
[2019-01-23] MEDS: NICOTINE 21MG/24HR 1 EA TRANSDERMAL TD SCH (09:01)
[2019-01-23] MEDS ORDERED: TRAZO50TA PO (10:50)
[2019-01-23] MEDS ORDERED: NICO21PAT TD (10:50)
[2019-01-23] MEDS ORDERED: ATIV1TAB7 PO (10:50)
[2019-01-23] MEDS ORDERED: FLUO20CA19 PO (10:50)
[2019-01-23] MEDS ORDERED: CARBOT AU (10:50)
[2019-01-23] MEDS ORDERED: HYDRO50TAB PO (10:50)
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
== END 2019-01-23 14:30 | disposition home or self-care (01) | DRG 755 ==
LOC: M ED 20:38 → M ED INP 01-19 12:47 → M PSY 01-19 14:00
PROVIDERS: ADMIT Psychiatry & Neurology Psychiatry; ATTEND Psychiatry & Neurology Psychiatry
DX: F43.10 Post-traumatic stress disorder, unspecified (principal); F32.9 Major depressive disorder, single episode, unspecified; F11.10 Opioid abuse, uncomplicated; F14.10 Cocaine abuse, uncomplicated; F10.11 Alcohol abuse, in remission; F12.11 Cannabis abuse, in remission; H61.23 Impacted cerumen, bilateral; F17.200 Nicotine dependence, unspecified, uncomplicated; G43.909 Migraine, unspecified, not intractable, without status migrainosus; T41.3X2A Poisoning by local anesthetics, intentional self-harm, initial encounter; T40.2X2A Poisoning by other opioids, intentional self-harm, initial encounter; Y92.009 Unspecified place in unspecified non-institutional (private) residence as the place of occurrence of the external cause; Z91.410 Personal history of adult physical and sexual abuse